=== PATIENT | male | born 1955 | race Caucasian/White ===

== ENCOUNTER 2024-05-13 11:24 | Inpatient (IN) | payer OTHER ==
[~2024-05-13] VITALS: Ht 175.3 cm; Wt 4.3 kg
[2024-05-13 11:54] VITALS: BP 101/53
[2024-05-13 12:41] LABS: BASO % 0.4 % (0.0-1.0); EOS # 0.2 10*3/uL (0.0-0.4); HEMATOCRIT 38.2 % (42.0-52.0); MEAN CELL VOLUME 100.5 fl (80.0-94.0); MEAN CORPUSCULAR HGB 33.2 pg (27.0-31.0); MEAN PLATELET VOLUME 10.6 fl (9.6-12.3); MONO # 0.6 10*3/uL (0.1-1.0); MONO % 10.5 % (3.0-9.0); NEUT # 3.8 10*3/uL (2.3-7.9); NEUT % 65.9 % (47.0-73.0); PLATELET COUNT AUTOMATED 133 10*3/uL (130-400); RED CELL DISTRI WIDTH 12.5 % (0-14.5); WHITE BLOOD COUNT 5.7 10*3/uL (4.8-10.8)
[2024-05-13 13:02] LABS: BUN 24 mg/dl (9-23); CHLORIDE 105 mmol/L (98-107); POTASSIUM 4.1 mmol/L (3.4-5.1)
[2024-05-13 13:05] LABS: ETHYL ALCOHOL < 3.0 mg/dl (<3)
[2024-05-13] MEDS ORDERED: Ziprasidone Mesylate 20 MG VIAL IM PRN (15:30)
[2024-05-13] MEDS ORDERED: hydrOXYzine hydrochloride 50 MG/ML VIAL IM PRN (15:30)
[2024-05-13] MEDS ORDERED: LORazepam 1 MG TAB PO PRN (15:35)
[2024-05-13] MEDS ORDERED: GOOD SENSE ASP325 MG PO (15:42)
[2024-05-13] MEDS ORDERED: LIPITOR40 MG PO (15:43)
[2024-05-13] MEDS ORDERED: CLOPIDOGREL75 MG PO (15:45)
[2024-05-13] MEDS ORDERED: BREO ELLIPTA 11 EACH INH (15:46)
[2024-05-13] MEDS ORDERED: KEPPRA500 MG PO (15:57)
[2024-05-13] MEDS ORDERED: ZESTRIL10 MG PO (16:00)
[2024-05-13] MEDS ORDERED: ACETAMINOPHEN 325 MG TAB PO PRN (16:05)
[2024-05-13] MEDS ORDERED: Magnesium Hydroxide 30 ML UDC PO PRN (16:05)
[2024-05-13] MEDS ORDERED: MG-AL HYDROXIDE/SIMETICONE 30 ML UDC PO PRN (16:05)
[2024-05-13] MEDS ORDERED: Menthol/Zinc Oxide 4 GM THIN T PRN (16:20)
[2024-05-13 16:31] VITALS: BP 121/59
[2024-05-13 20:00] VITALS: BP 132/69
[2024-05-13] MEDS ORDERED: risperiDONE 1 MG TAB PO SCH (21:00)
[2024-05-13] MEDS ORDERED: DIVALPROEX (DR) 500 MG TAB PO SCH (21:00)
[2024-05-13] MEDS ORDERED: ATORVASTATIN CALCIUM 20 MG TAB PO SCH (21:00)
[2024-05-13] MEDS ORDERED: LEVETIRACETAM 500 MG TAB PO SCH (21:00)
[2024-05-14 06:09] LABS: BASO % 0.6 % (0.0-1.0); EOS # 0.2 10*3/uL (0.0-0.4); EOS % 2.7 % (1.0-4.0); MEAN CELL VOLUME 100.7 fl (80.0-94.0); MEAN CORPUSCULAR HGB 32.9 pg (27.0-31.0); MEAN CORPUSCULAR HGB CONC 32.6 g/dl (33.0-37.0); MEAN PLATELET VOLUME 11.1 fl (9.6-12.3); MONO # 0.6 10*3/uL (0.1-1.0); MONO % 9.6 % (3.0-9.0); NEUT # 4.3 10*3/uL (2.3-7.9); NEUT % 63.8 % (47.0-73.0); PLATELET COUNT AUTOMATED 153 10*3/uL (130-400); RED BLOOD COUNT 4.17 10*6/uL (4.50-5.90); RED CELL DISTRI WIDTH 12.4 % (0-14.5); WHITE BLOOD COUNT 6.7 10*3/uL (4.8-10.8)
[2024-05-14 06:23] LABS: ALKALINE PHOSPHATASE 65 U/L (46-116); BUN 26 mg/dl (9-23); CHLORIDE 105 mmol/L (98-107); CHOLESTEROL 139 mg/dL (<200); LDL CHOLESTEROL 67 mg/dL (9-159); POTASSIUM 4.4 mmol/L (3.4-5.1); SGPT/ALT 12 U/L (5-49); TOTAL PROTEIN 7.4 gm/dL (6.0-8.0); TRIGLYCERIDES 71 mg/dl (<150); VALPROIC ACID (DEPAKENE) 103.4 ug/ml (50-100)
[2024-05-14 08:00] VITALS: BP 114/80
[2024-05-14] MEDS ORDERED: ASPIRIN 325 MG TAB PO SCH (09:00)
[2024-05-14] MEDS ORDERED: Nicotine 21 MG PATCH T SCH (09:00)
[2024-05-14] MEDS ORDERED: BENZTROPINE MESYLATE 1 MG TAB PO SCH (09:00)
[2024-05-14] MEDS ORDERED: Clopidogrel Hydrogen Sulfate 75 MG TAB PO SCH (09:00)
[2024-05-14] MEDS ORDERED: LISINOPRIL 10 MG TAB PO SCH (09:00)
[2024-05-14 20:00] VITALS: BP 138/57
[2024-05-14] MEDS ORDERED: DIVALPROEX (DR) 250 MG TAB PO SCH (21:00)
[2024-05-14] MEDS ORDERED: Melatonin 5 MG TABLET PO SCH (21:00)
[2024-05-15 08:43] VITALS: BP 109/58
[2024-05-15 20:00] VITALS: BP 110/50
[2024-05-15] MEDS ORDERED: fluvoxaMINE Maleate 50 MG TAB PO SCH (21:00)
[2024-05-16 08:34] VITALS: BP 98/50
[2024-05-16] MEDS ORDERED: Rivastigmine Tartrate 4.6 MG/24 HR PATCH T SCH (09:00)
[2024-05-16] MEDS ORDERED: RAMELTEON 8 MG TAB PO SCH (21:00)
== END 2024-05-16 11:15 | disposition short-term general hospital (02) | DRG 56 ==
LOC: ED 11:24 → EDHOLD 14:10 → 3N 14:10
PROVIDERS: Physician Assistant Medical; ADMIT Psychiatry & Neurology Psychiatry; ATTEND Psychiatry & Neurology Psychiatry
PROC: GZHZZZZ Group Psychotherapy (ICD-10-PCS; principal; 2024-05-14)
PROC: GZ56ZZZ Individual Psychotherapy, Supportive (ICD-10-PCS; 2024-05-14)
DX: G30.9 Alzheimer's disease, unspecified (principal); F02.811 Dementia in other diseases classified elsewhere, unspecified severity, with agitation; I62.00 Nontraumatic subdural hemorrhage, unspecified; F02.818 Dementia in other diseases classified elsewhere, unspecified severity, with other behavioral disturbance; F02.83 Dementia in other diseases classified elsewhere, unspecified severity, with mood disturbance; F31.9 Bipolar disorder, unspecified; F63.81 Intermittent explosive disorder; Z66 Do not resuscitate; J44.9 Chronic obstructive pulmonary disease, unspecified; I10 Essential (primary) hypertension; E78.5 Hyperlipidemia, unspecified; F43.10 Post-traumatic stress disorder, unspecified; D53.9 Nutritional anemia, unspecified; R73.9 Hyperglycemia, unspecified; G40.909 Epilepsy, unspecified, not intractable, without status epilepticus; I73.9 Peripheral vascular disease, unspecified; Z87.891 Personal history of nicotine dependence; Z86.73 Personal history of transient ischemic attack (TIA), and cerebral infarction without residual deficits

== ENCOUNTER 2024-05-16 11:17 | Inpatient (IN) | payer OTHER ==
[~2024-05-16] VITALS: Ht 177.8 cm; Wt 62.6 kg
[~2024-05-16 11:17] MED LIST: BREO ELLIPTA 11 EACH INH; CLOPIDOGREL75 MG PO; GOOD SENSE ASP325 MG PO; KEPPRA500 MG PO; LIPITOR40 MG PO; ZESTRIL10 MG PO
[2024-05-16 11:20] VITALS: BP 142/60
[2024-05-16] MEDS ORDERED: ACETAMINOPHEN 650 MG SUPP R PRN (11:30)
[2024-05-16] MEDS ORDERED: ACETAMINOPHEN 325 MG TAB PO PRN (11:30)
[2024-05-16] MEDS ORDERED: Ondansetron Hydrochloride 4 MG/2 ML VIAL IV PRN (11:30)
[2024-05-16] MEDS ORDERED: TEMAZEPAM 15 MG CAP PO PRN (11:30)
[2024-05-16] MEDS ORDERED: BISACODYL 5 MG TAB PO PRN (11:30)
[2024-05-16] MEDS ORDERED: BISACODYL 10 MG SUPP R PRN (11:30)
[2024-05-16] MEDS ORDERED: Magnesium Hydroxide 30 ML UDC PO PRN (11:30)
[2024-05-16 12:00] VITALS: BP 120/54
[2024-05-16 16:00] VITALS: BP 128/56
[2024-05-16] MEDS ORDERED: risperiDONE 1 MG TAB PO SCH (22:00)
[2024-05-16] MEDS ORDERED: DIVALPROEX (DR) 250 MG TAB PO SCH (22:00)
[2024-05-16] MEDS ORDERED: LEVETIRACETAM 500 MG TAB PO SCH (22:00)
[2024-05-16] MEDS ORDERED: ATORVASTATIN CALCIUM 20 MG TAB PO SCH (22:00)
[2024-05-17] VITALS: BP 117/70
[2024-05-17] MEDS ORDERED: Ziprasidone Mesylate 20 MG VIAL IM ONE (00:25)
[2024-05-17] MEDS ORDERED: Water, Sterile 10 ML VIAL ONE (01:10)
[2024-05-17 05:24] LABS: BUN 14 mg/dl (9-23); CHLORIDE 110 mmol/L (98-107); POTASSIUM 4.2 mmol/L (3.4-5.1)
[2024-05-17 06:22] LABS: BASO % 0.2 % (0.0-1.0); EOS # 0.1 10*3/uL (0.0-0.4); EOS % 3.3 % (1.0-4.0); HEMATOCRIT 36.2 % (42.0-52.0); MEAN CELL VOLUME 99.7 fl (80.0-94.0); MEAN CORPUSCULAR HGB 33.6 pg (27.0-31.0); MEAN CORPUSCULAR HGB CONC 33.7 g/dl (33.0-37.0); MONO # 0.4 10*3/uL (0.1-1.0); NEUT # 2.5 10*3/uL (2.3-7.9); NEUT % 58.7 % (47.0-73.0); PLATELET COUNT AUTOMATED 110 10*3/uL (130-400); RED BLOOD COUNT 3.63 10*6/uL (4.50-5.90); RED CELL DISTRI WIDTH 12.4 % (0-14.5); WHITE BLOOD COUNT 4.2 10*3/uL (4.8-10.8)
[2024-05-17 08:00] VITALS: BP 104/52
[2024-05-17] MEDS ORDERED: ASPIRIN 325 MG TAB PO SCH (10:00)
[2024-05-17] MEDS ORDERED: Clopidogrel Hydrogen Sulfate 75 MG TAB PO SCH (10:00)
[2024-05-17] MEDS ORDERED: Rivastigmine Tartrate 1.5 MG CAP PO SCH ×2 (10:00→18:00)
[2024-05-17] MEDS ORDERED: BENZTROPINE MESYLATE 0.5 MG TAB PO SCH (10:00)
[2024-05-17] MEDS ORDERED: LISINOPRIL 10 MG TAB PO SCH (10:00)
[2024-05-17] MEDS ORDERED: LORazepam 1 MG TAB PO PRN (11:50)
[2024-05-17 16:00] VITALS: BP 142/52
[2024-05-17 20:00] VITALS: BP 104/57
[2024-05-17] MEDS ORDERED: risperiDONE 0.5 MG TAB PO SCH (21:00)
[2024-05-18 04:21] LABS: BASO % 0.2 % (0.0-1.0); EOS # 0.1 10*3/uL (0.0-0.4); EOS % 2.7 % (1.0-4.0); HEMATOCRIT 36.6 % (42.0-52.0); MEAN CELL VOLUME 99.7 fl (80.0-94.0); MEAN CORPUSCULAR HGB CONC 33.1 g/dl (33.0-37.0); MEAN PLATELET VOLUME 10.9 fl (9.6-12.3); MONO # 0.5 10*3/uL (0.1-1.0); NEUT # 2.6 10*3/uL (2.3-7.9); NEUT % 52.8 % (47.0-73.0); PLATELET COUNT AUTOMATED 123 10*3/uL (130-400); RED BLOOD COUNT 3.67 10*6/uL (4.50-5.90); RED CELL DISTRI WIDTH 12.1 % (0-14.5); WHITE BLOOD COUNT 4.8 10*3/uL (4.8-10.8)
[2024-05-18 04:47] LABS: BUN 19 mg/dl (9-23); CHLORIDE 109 mmol/L (98-107)
[2024-05-18 08:00] VITALS: BP 141/72
[2024-05-18 16:00] VITALS: BP 112/66
[2024-05-19] VITALS: BP 126/66
[2024-05-19 05:35] LABS: BUN 19 mg/dl (9-23); CHLORIDE 105 mmol/L (98-107)
[2024-05-19 06:25] LABS: MEAN CELL VOLUME 99.5 fl (80.0-94.0); MEAN CORPUSCULAR HGB 33.1 pg (27.0-31.0); MEAN CORPUSCULAR HGB CONC 33.2 g/dl (33.0-37.0); MEAN PLATELET VOLUME 11.5 fl (9.6-12.3); PLATELET COUNT AUTOMATED 124 10*3/uL (130-400); RED BLOOD COUNT 3.72 10*6/uL (4.50-5.90); RED CELL DISTRI WIDTH 11.9 % (0-14.5); WHITE BLOOD COUNT 6.6 10*3/uL (4.8-10.8)
[2024-05-19 07:26] LABS: MANUAL DIFF REFLEX YES
[2024-05-19 07:29] LABS: ATYPICAL LYMPHS 1 % (0-0); BASOPHILS 1 % (0-1); TOTAL CELLS COUNTED 100 #CELLS
[2024-05-19 07:30] LABS: PLATELET SUFFICIENCY NORMAL (NORMAL)
[2024-05-19 08:00] VITALS: BP 102/56
[2024-05-19 12:00] VITALS: BP 97/67
[2024-05-19] MEDS ORDERED: RIVASTIGMINE T1.5 M1 PO (14:15)
[2024-05-19] MEDS ORDERED: RISPERIDONE0.5 MG PO (14:15)
== END 2024-05-19 15:02 | DRG 83 ==
LOC: 4E 11:17 → ICCU 11:17 → 4E 05-18 15:03
PROVIDERS: Student in an Organized Health Care Education/Training Program; ADMIT Internal Medicine; ATTEND Internal Medicine
DX: S06.5XAA Traumatic subdural hemorrhage with loss of consciousness status unknown, initial encounter (principal); F03.918 Unspecified dementia, unspecified severity, with other behavioral disturbance; F63.81 Intermittent explosive disorder; F32.9 Major depressive disorder, single episode, unspecified; G40.909 Epilepsy, unspecified, not intractable, without status epilepticus; Z66 Do not resuscitate; D53.9 Nutritional anemia, unspecified; R73.9 Hyperglycemia, unspecified; J44.9 Chronic obstructive pulmonary disease, unspecified; I10 Essential (primary) hypertension; F43.10 Post-traumatic stress disorder, unspecified; I73.9 Peripheral vascular disease, unspecified; E78.5 Hyperlipidemia, unspecified; F17.210 Nicotine dependence, cigarettes, uncomplicated; W18.30XA Fall on same level, unspecified, initial encounter; Z86.73 Personal history of transient ischemic attack (TIA), and cerebral infarction without residual deficits; Z79.82 Long term (current) use of aspirin; Z79.899 Other long term (current) drug therapy; Y93.89 Activity, other specified; Y92.89 Other specified places as the place of occurrence of the external cause; Y99.8 Other external cause status

== ENCOUNTER 2024-06-24 03:34 | Emergency (ER) | payer OTHER ==
[~2024-06-24] VITALS: Ht 172.7 cm; Wt 63.4 kg
[~2024-06-24 03:34] MED LIST changes: +RISPERIDONE0.5 MG PO; +RIVASTIGMINE T1.5 M1 PO
[2024-06-24 03:49] LABS: BASO % 0.2 % (0.0-1.0); EOS # 0.1 10*3/uL (0.0-0.4); HEMATOCRIT 38.4 % (42.0-52.0); MEAN CELL VOLUME 98.5 fl (80.0-94.0); MEAN CORPUSCULAR HGB 32.6 pg (27.0-31.0); MEAN CORPUSCULAR HGB CONC 33.1 g/dl (33.0-37.0); MEAN PLATELET VOLUME 10.6 fl (9.6-12.3); MONO # 0.7 10*3/uL (0.1-1.0); MONO % 7.5 % (3.0-9.0); NEUT # 6.2 10*3/uL (2.3-7.9); NEUT % 70.4 % (47.0-73.0); PLATELET COUNT AUTOMATED 163 10*3/uL (130-400); RED CELL DISTRI WIDTH 12.9 % (0-14.5); WHITE BLOOD COUNT 8.9 10*3/uL (4.8-10.8)
[2024-06-24 04:10] LABS: BUN 13 mg/dl (9-23); CHLORIDE 102 mmol/L (98-107); CPK 52 U/L (34-171); POTASSIUM 3.8 mmol/L (3.4-5.1)
== END 2024-06-24 05:39 | disposition short-term general hospital (02) ==
LOC: ED 03:34
PROVIDERS: Internal Medicine
DX: S06.360A Traumatic hemorrhage of cerebrum, unspecified, without loss of consciousness, initial encounter (principal); Z79.899 Other long term (current) drug therapy; W06.XXXA Fall from bed, initial encounter; Y93.89 Activity, other specified; Y92.89 Other specified places as the place of occurrence of the external cause; Y99.8 Other external cause status

== ENCOUNTER → 2024-06-30 | Outpatient (CLI) | payer OTHER | END | disposition home or self-care (01) | LOC: ORTHO 03:28 | PROVIDERS: ATTEND Orthopaedic Surgery | DX: S52.54 Smith's fracture (principal); M79.89 Other specified soft tissue disorders; X58.XXXA Exposure to other specified factors, initial encounter; Y93.89 Activity, other specified; Y92.89 Other specified places as the place of occurrence of the external cause; Y99.8 Other external cause status ==

== ENCOUNTER → 2024-07-20 | Day surgery (SDC) | payer OTHER ==
[~2024-07-20] VITALS: Ht 177.8 cm; Wt 59.9 kg
[~2024-07-20] MED LIST changes: +ADV 100/50 INH; +DEPAKOTE250 MG PO; +TRAZODONE50 MG PO; +VRAYLAR1.5 MG PO
== END | disposition home or self-care (01) ==
LOC: SDC 07-16 08:00
PROVIDERS: ATTEND Orthopaedic Surgery
DX: M24.542 Contracture, left hand (principal); Z53.8 Procedure and treatment not carried out for other reasons; I69.354 Hemiplegia and hemiparesis following cerebral infarction affecting left non-dominant side